=== PATIENT | female | born 1985 | race Caucasian/White ===

== ENCOUNTER 2019-09-13 11:42 | Inpatient (IN) | payer OTHER ==
[~2019-09-13] VITALS: Ht 170.2 cm; Wt 85.2 kg
--- NOTE | ~2019-09-13 | CON ---
[address] [address] CONSULTATION Name: CURRY CUMMINGS Room: [address] ADM IN M.R.#: [id number] Admission: 09/13/19 Attend Phys: Elijah Tompkins Discharge: Date of : 83 Report #: [id number] THIS REPORT FOR: //name// cc: SHANNAN Sparks family physician/PCP SHANNAN - [place] family physician/PCP ~ THIS REPORT FOR: //name// CC: SHANNAN physician/PCP Stan Ceballos DATE OF SERVICE: 09/14/2019 NEW PATIENT CONSULTATIVE SUMMARY PRIMARY CARE PHYSICIAN: Unknown. REASON FOR CONSULTATION: New DVT and PE. HISTORY OF PRESENT ILLNESS: The patient is a very pleasant 34-year-old female who gives a history of having some leg pain on the left side for the last 2-3 days. She developed some chest pain and shortness of breath 48 hours ago and came to the Emergency Room yesterday due to the shortness of breath. The patient was evaluated in the Emergency Room and had a knee x-ray due to pain, which did not show any fracture or deformity. She had a venous Doppler ultrasound performed subsequently, which showed an occlusive DVT within the left popliteal and calf veins, so she had a CT angiogram of the chest, which was done due to her shortness of breath and chest pain, which showed multiple bilateral pulmonary emboli, most prominent in the right lower lung. There were subsegmental areas of atelectasis or pneumonia, most prominent in the left lung base. Small infiltrates are present in the medial and posterior right lung base as well. The patient was started on Lovenox. She had labs performed including CBC and CMP, which did show some mild elevation in bilirubin to 1.5. For this reason, she had a CT scan of the abdomen and pelvis, which shows increasing areas of consolidation in the right lower lung with increasing atelectasis in the posterior left lower lung with vascular congestion improved otherwise from the day prior. No evidence of acute abdominal or pelvic process was seen. No evidence of hepatic mass was seen. There was no evidence of any acute abdominal or pelvic process including left ovary, which was normal and right ovary, which was somewhat displaced. The patient's CBC today showed increasing WBC count from 11.2-16.9. Hemoglobin and hematocrit today was 13.1 and 38.9 respectively, platelet count of 302 and absolute neutrophil count of 16.4 with a lymphocyte count of 0.3. Chemistries revealed normal electrolytes with renal function normal with BUN and creatinine of 7 and 0.7 respectively. AST was mildly elevated at 56 with ALT normal at 41 and alkaline phosphatase normal at 89 with albumin of 3.3. The patient also was started on levofloxacin for community-acquired pneumonia. She is feeling somewhat better, but still having [facility] [address] [facility] [place] [place] [address] CONSULTATION Name: CURRY CUMMINGS Room: [address] IN M.R.#: [id number] Admission: 09/13/19 Attend Phys: Elijah Tompkins Discharge: Date of : 83 Report #: [id number] chest pain in the right lower zone along with some leg pain and discomfort. PAST MEDICAL HISTORY: 1. Migraines. 2. Tobacco use. 3. New onset PE and DVT current admission. PAST SURGICAL HISTORY: 1. Vaginal deliveries x 2. 2. Growth on tailbone. FAMILY HISTORY: The patient's paternal grandmother had a history of blood clots in the legs. The patient's father has had history of coronary artery disease. No other significant family history of blood clotting or bleeding disorders or cancers. PERSONAL HISTORY: The patient is a current every day smoker for the last 14 years, 1 pack of cigarettes per day, uses alcohol only on special occasions. Denies any illicit drug use. ALLERGIES: 1. AMOXICILLIN. 2. ONDANSETRON. 3. POTASSIUM. CURRENT MEDICATIONS: 1. Lovenox 50 mg subcutaneously b.i.d. 2. Oxycodone 5 mg p.o. q.4 hours as needed. 3. Levaquin 750 mg daily IV. 4. Macrobid 100 mg p.o. b.i.d. 5. Nicotine transdermal patches 14 mg daily. 6. Tramadol 50 mg p.o. q.6 hours as needed. 7. Sodium chloride for IV hydration. 8. Promethazine 12.5 mg IV q.4 hours as needed. 9. Fentanyl 25 mcg IV q.2 hours as needed. REVIEW OF SYSTEMS: A 13-point review of systems were obtained, which were negative for any findings of those discussed in the HPI. PHYSICAL EXAMINATION: VITAL SIGNS: Temperature today was 36.6 degrees centigrade, pulse was 92 beats per minute, respiratory rate 17 breaths per minute, blood pressure 123/72 mmHg with pulse ox 93% on room air. GENERAL: Awake, alert, oriented x 3, no apparent distress. HEENT: EOMI/PERRL. LYMPHATIC: No lymphadenopathy in the neck [place] [address] CONSULTATION Name: CURRY CUMMINGS Room: [address] IN Deanna.Yuri.#: [id number] Admission: 09/13/19 Attend Phys: Elijah Tompkins Discharge: Date of : 83 Report #: [id number] CHEST: Clear bilaterally. Crackles in the right lower zone. CARDIOVASCULAR: Regular rate and rhythm. ABDOMEN: Soft, bowel sounds positive. MUSCULOSKELETAL: No significant arthropathy, gait not assessed. NEUROLOGIC: No evidence of any focal neurological deficits. INTEGUMENTARY: No evidence of rash or other skin changes. ASSESSMENT AND PLAN: The patient is a very pleasant 34-year-old female with a history of smoking, [id number] history so far, who presented with left sided deep venous thrombosis and bilateral pulmonary emboli along with right sided lower lobe infiltrate suggestive of pneumonia. She was started on Lovenox for treatment of her deep venous thrombosis. Some hypercoagulability blood tests have been sent and I will complete these testing with prothrombin gene mutation, antithrombin III, protein C and protein S along with lupus anticoagulant testing. The patient is currently on Lovenox, which she is tolerating well. She does have some mild hemoptysis at this time. If her chest pain and cough continues, she may benefit from broad spectrum antibiotics. She does have positive family history of pulmonary embolism and deep venous thrombosis in her grandmother, but otherwise this was an unprovoked thromboembolic event. She will need at least 6 months of anticoagulation with further duration determined by the results of her hypercoagulability workup. The patient is currently without insurance and has applied for Medicaid. digital product manager will work on options for possible coverage of novel anticoagulants versus Coumadin. If she does go home on Coumadin, she will need to check her INR at her primary care physician's office or the [facility]. These factors and issues were discussed with the patient in detail and all of her questions were answered to her satisfaction. We will follow her while she is in-house. Thank you for allowing us to participate in the care of this pleasant patient. By: [id number] Lyons MD /nt
[~2019-09-13 11:42] MED LIST: AZITHROMYCIN 2250 MG PO; DOXYCYCLINE 10100 MG PO; NOHOMEMEDICATIONS
[2019-09-13 11:52] VITALS: BP 141/73
[2019-09-13 12:29] LABS: ABSOLUTE BASOPHILS 0.1 thou/uL (0.0-0.2); ABSOLUTE LYMPHOCYTES 1.1 thou/uL (0.8-5.3); ABSOLUTE MONOCYTES 0.6 thou/uL (0.0-1.2); ABSOLUTE NEUTROPHILS 9.4 thou/uL (1.6-8.1); BASOPHILS 0.6 %; EOSINOPHILS 0.3 %; HEMATOCRIT 40.7 % (37.0-47.0); HEMOGLOBIN 14.1 gm/dL (12.0-15.0); MCH 33.8 pg (26.0-34.0); MCHC 34.7 g/dL (28.0-37.0); MCV 97.4 fL (80.0-100.0); MONOCYTES 5.3 %; MPV 7.1 fl. (7.2-11.1); NUCLEATED RBCS 0 /100WBC; PLATELET COUNT* 268 thou/uL (150-400); POLYS 83.8 %; RBC 4.18 mil/uL (4.20-5.00); RDW-CV 15.9 % (10.5-14.5); WBC 11.2 thou/uL (4.0-11.0)
[2019-09-13 12:46] LABS: CALCIUM 8.7 mg/dL (8.5-10.1); CREATININE 0.7 mg/dL (0.6-1.3); POTASSIUM 3.5 mmol/L (3.5-5.1)
[2019-09-13 12:50] LABS: ALBUMIN 3.3 g/dL (3.4-5.0); TOTAL BILIRUBIN 1.5 mg/dL (<0.1-1.0); TOTAL PROTEIN 7.3 g/dL (6.4-8.2)
[2019-09-13 13:45] LABS: URINE BLOOD TRACE (Negative); URINE CLARITY CLEAR; URINE COLOR ORANGE; URINE GLUCOSE-RANDOM NEGATIVE (Negative); URINE KETONES TRACE (Negative); URINE LEUKOCYTES-REFLEX NEGATIVE (Negative); URINE PROTEIN TRACE (Negative); URINE SPECIFIC GRAVITY 1.025 (1.005-1.030)
[2019-09-13 13:47] LABS: ICTOTEST (BILI CONFIRMATORY) Negative (Negative); URINE BILIRUBIN 2+ (Negative); URINE NITRITE-REFLEX POSITIVE (Negative)
[2019-09-13 13:51] LABS: SQUAMOUS >10 Many /LPF (0-3)
[2019-09-13 13:52] LABS: URINE WBC-REFLEX 0-5 Rare /HPF (0-5)
[2019-09-13 13:53] LABS: CASTS None Seen /LPF (None Seen); CRYSTALS None Seen /LPF (None Seen); MUCUS >6 Heavy strn/LPF (None Seen); URINE RBC 0-2 Rare /HPF (0-2)
[2019-09-13 13:55] LABS: APTT 27.5 Seconds (25.0-31.3); PROTIME 10.2 Seconds (9.20-11.50)
--- NOTE | 2019-09-13 14:32 | EKG ---
[place] [address] ELECTROCARDIOGRAM REPORT Name: CURRY CUMMINGS Room: [place] [address] ADM IN .R.#: [id number] Admission: 09/13/19 Attend Phys: Stan Ceballos Discharge: Date of : 83 Date of Service: 09/13/19 1358 Report #: [id number] THIS REPORT FOR: //name// [facility] ED Test Date: 2019-09-13 Test Time: 13:58:50 Pat Name: CURRY CUMMINGS Department: Room: [facility] Gender: F Economic Consultant: [facility] : 1985 Requested By: Rasta Huitron Order Number: [id number] MD: Junior Jessica Measurements Intervals [place] Rate: 86 P: 61 NH: 173 QRS: 42 QRSD: 85 T: 8 QT: 372 QTc: 445 Interpretive Statements Sinus rhythm Baseline wander in lead(s) V2 No previous ECG available for comparison Electronically Signed On 09-13-2019 14:31:23 BROOM HANDLE DIPPER by Junior Jessica [email or web address] <ELECTRONICALLY SIGNED> By: Junior Jessica MD, [facility] 09/13/19 1431 1358 [id number] Junior Jessica MD, FACC /EPI
[2019-09-13 17:11] VITALS: BP 126/73
[2019-09-13 17:18] VITALS: BP 116/72
[2019-09-13 20:00] VITALS: BP 116/67
[2019-09-14 00:19] VITALS: BP 111/65
[2019-09-14 04:32] VITALS: BP 106/61
[2019-09-14 05:19] LABS: HEMATOCRIT 38.9 % (37.0-47.0); HEMOGLOBIN 13.2 gm/dL (12.0-15.0); MCH 33.4 pg (26.0-34.0); MCHC 33.9 g/dL (28.0-37.0); MCV 98.5 fL (80.0-100.0); MPV 7.3 fl. (7.2-11.1); NUCLEATED RBCS 0 /100WBC; PLATELET COUNT* 302 thou/uL (150-400); RBC 3.95 mil/uL (4.20-5.00); RDW-CV 15.4 % (10.5-14.5); WBC 16.9 thou/uL (4.0-11.0)
[2019-09-14 05:29] LABS: CALCIUM 8.6 mg/dL (8.5-10.1); CREATININE 0.9 mg/dL (0.6-1.3); POTASSIUM 3.5 mmol/L (3.5-5.1)
[2019-09-14 05:48] LABS: ABSOLUTE LYMPHOCYTES 0.3 thou/uL (0.8-5.3); ABSOLUTE MONOCYTES 0.2 thou/uL (0.0-1.2); ABSOLUTE NEUTROPHILS 16.4 thou/uL (1.6-8.1); ANISOCYTOSIS 1+; PLATELET ESTIMATE ADEQUATE; POIKILOCYTOSIS 1+
[2019-09-14 08:00] VITALS: BP 136/79
[2019-09-14 12:58] VITALS: BP 123/72
[2019-09-14 20:00] VITALS: BP 116/76
[2019-09-15] VITALS: BP 135/76
[2019-09-15 03:30] VITALS: BP 111/71
[2019-09-15 05:34] LABS: ABSOLUTE LYMPHOCYTES 1.9 thou/uL (0.8-5.3); ABSOLUTE MONOCYTES 0.5 thou/uL (0.0-1.2); BASOPHILS 0.2 %; EOSINOPHILS 0.1 %; HEMATOCRIT 35.1 % (37.0-47.0); HEMOGLOBIN 11.9 gm/dL (12.0-15.0); MCH 33.8 pg (26.0-34.0); MCHC 33.8 g/dL (28.0-37.0); MCV 99.9 fL (80.0-100.0); MONOCYTES 5.2 %; MPV 7.1 fl. (7.2-11.1); NUCLEATED RBCS 0 /100WBC; PLATELET COUNT* 292 thou/uL (150-400); POLYS 76.5 %; RBC 3.51 mil/uL (4.20-5.00); RDW-CV 15.8 % (10.5-14.5); WBC 10.4 thou/uL (4.0-11.0)
[2019-09-15 06:08] LABS: ALBUMIN 2.4 g/dL (3.4-5.0); CALCIUM 8.1 mg/dL (8.5-10.1); CREATININE 0.8 mg/dL (0.6-1.3); TOTAL BILIRUBIN 0.5 mg/dL (<0.1-1.0); TOTAL PROTEIN 6.1 g/dL (6.4-8.2)
[2019-09-15 08:00] VITALS: BP 112/62
[2019-09-15 12:09] VITALS: BP 97/47
[2019-09-15 16:00] VITALS: BP 111/61
[2019-09-15 20:00] VITALS: BP 130/67
[2019-09-16] VITALS: BP 105/72
[2019-09-16 04:00] VITALS: BP 105/66
[2019-09-16 04:53] LABS: ABSOLUTE EOSINOPHILS 0.1 thou/uL (0.0-0.7); ABSOLUTE LYMPHOCYTES 1.9 thou/uL (0.8-5.3); ABSOLUTE MONOCYTES 0.3 thou/uL (0.0-1.2); ABSOLUTE NEUTROPHILS 3.7 thou/uL (1.6-8.1); BASOPHILS 0.8 %; EOSINOPHILS 1.2 %; HEMATOCRIT 32.5 % (37.0-47.0); HEMOGLOBIN 11.2 gm/dL (12.0-15.0); LYMPHOCYTES 31.4 %; MCH 34.2 pg (26.0-34.0); MCHC 34.4 g/dL (28.0-37.0); MCV 99.4 fL (80.0-100.0); MPV 6.7 fl. (7.2-11.1); NUCLEATED RBCS 0 /100WBC; PLATELET COUNT* 292 thou/uL (150-400); POLYS 61.6 %; RBC 3.27 mil/uL (4.20-5.00); RDW-CV 15.7 % (10.5-14.5); WBC 6.1 thou/uL (4.0-11.0)
[2019-09-16 05:14] LABS: ALBUMIN 2.2 g/dL (3.4-5.0); CALCIUM 8.1 mg/dL (8.5-10.1); CREATININE 0.6 mg/dL (0.6-1.3); POTASSIUM 3.8 mmol/L (3.5-5.1); TOTAL BILIRUBIN 0.5 mg/dL (<0.1-1.0); TOTAL PROTEIN 5.7 g/dL (6.4-8.2)
[2019-09-16 08:30] VITALS: BP 108/63
[2019-09-16 13:46] VITALS: BP 113/88
[2019-09-16 13:48] VITALS: BP 128/83
[2019-09-16 16:06] VITALS: BP 126/73
[2019-09-17] VITALS: BP 126/79
[2019-09-17 07:47] LABS: ABSOLUTE BASOPHILS 0.1 thou/uL (0.0-0.2); ABSOLUTE EOSINOPHILS 0.1 thou/uL (0.0-0.7); ABSOLUTE LYMPHOCYTES 1.3 thou/uL (0.8-5.3); ABSOLUTE MONOCYTES 0.3 thou/uL (0.0-1.2); ABSOLUTE NEUTROPHILS 3.8 thou/uL (1.6-8.1); BASOPHILS 1.1 %; HEMATOCRIT 33.6 % (37.0-47.0); HEMOGLOBIN 11.4 gm/dL (12.0-15.0); LYMPHOCYTES 23.4 %; MCH 33.4 pg (26.0-34.0); MCHC 33.8 g/dL (28.0-37.0); MCV 98.6 fL (80.0-100.0); MPV 6.6 fl. (7.2-11.1); NUCLEATED RBCS 0 /100WBC; PLATELET COUNT* 329 thou/uL (150-400); POLYS 67.5 %; RBC 3.41 mil/uL (4.20-5.00); RDW-CV 15.9 % (10.5-14.5); WBC 5.6 thou/uL (4.0-11.0)
[2019-09-17 07:55] LABS: CALCIUM 8.3 mg/dL (8.5-10.1); CREATININE 0.6 mg/dL (0.6-1.3); POTASSIUM 3.6 mmol/L (3.5-5.1)
[2019-09-17 08:00] VITALS: BP 113/71
[2019-09-17 12:00] VITALS: BP 112/75
--- NOTE | 2019-09-17 15:57 | 2DMMODE ---
[place] [address] 2 D/M-MODE ECHOCARDIOGRAM Name: CURRY CUMMINGS Room: [address] ADM IN M.R.#: [id number] Admission: 09/13/19 Attend Phys: Stan Ceballos Discharge: Date of : 83 Date of Service: 09/17/19 1556 Report #: [id number] THIS REPORT FOR: cc: FAM - No family physician/PCP FAM - No family physician/PCP Usama Powers MD [facility] ~ APPROVED REPORT Study performed: 09/17/2019 11:52:22 EXAM: Comprehensive 2D, Doppler, and color-flow Echocardiogram Patient Location: Bedside BSA: 1.86 HR: 80 bpm BP: 113/71 mmHg Other Information Study Quality: Good Indications Dyspnea Chest Pain 2D Dimensions IVSd: 10.04 (7-11mm) LVOT Diam: 20.38 (18-24mm) LVDd: 42.00 mm PWd: 11.90 (7-11mm) Ascending Ao: 25.89 (22-36mm) LVDs: 35.31 (25-40mm) Aortic Root: 26.46 mm Volumes Left Atrial Volume (Systole) LA ESV Index: 20.40 mL/m2 Aortic Valve AoV Peak Aung.: 0.97 m/s AO Peak Gr.: 3.77 mmHg LVOT Max P.45 mmHg AO Mean Gr.: 2.56 mmHg LVOT Mean P.64 mmHg LVOT Max V: 0.93 m/s AO V2 VTI: 19.12 cm LVOT Mean V: 0.58 m/s KYLE (VTI): 3.82 cm2 LVOT V1 VTI: 22.40 [place] [address] 2 D/M-MODE ECHOCARDIOGRAM Name: CURRY CUMMINGS Room: [address] IN M.R.#: [id number] Admission: 09/13/19 Attend Phys: Stan Ceballos Discharge: Date of : 83 Date of Service: 09/17/19 1556 Report #: [id number] E/A Ratio: 1.76 MV Decel. Time: 182.33 ms MV E Max Aung.: 0.76 m/s MV PHT: 52.88 ms MVA (PHT): 4.16 cm2 TDI E/Lateral E': 5.07 E/Medial E': 5.85 Medial E' Aung.: 0.13 m/s Lateral E' Aung.: 0.15 m/s Pulmonary Valve PV Peak Aung.: 0.79 m/s PV Peak Gr.: 2.51 mmHg Tricuspid Valve RAP Estimate: 5.00 mmHg TR Peak Gr.: 44.86 mmHg RVSP: 49.86 mmHg PA Pressure: 49.86 mmHg Left Ventricle The left ventricle is normal size. There is normal LV segmental wall motion. There is normal left ventricular wall thickness. The left ventricular systolic function is normal. The left ventricular ejection fraction is within the normal range. LVEF is 55-60%. The left ventricular diastolic function is normal. Right Ventricle The right ventricle is normal size. The right ventricular systolic function is normal. Atria The left atrium size is normal. The right atrium size is normal. Aortic Valve The aortic valve is normal in structure. No aortic regurgitation is present. There is no aortic valvular stenosis. Mitral Valve The mitral valve is normal in structure. Trace mitral regurgitation. No evidence of mitral valve stenosis. Tricuspid Valve The tricuspid valve is normal in structure. [place] [address] 2 D/M-MODE ECHOCARDIOGRAM Name: CURRY CUMMINGS Room: [address]#: [id number] Admission: 09/13/19 Attend Phys: Stan Ceballos Discharge: Date of : 83 Date of Service: 09/17/19 1556 Report #: [id number] Pulmonic Valve The pulmonary valve is normal in structure. Trace pulmonic regurgitation. Great Vessels The aortic root is normal in size. IVC is normal in size and collapses >50% with inspiration. Pericardium There is no pericardial effusion. <Conclusion> The left ventricle is normal size. There is normal left ventricular wall thickness. The left ventricular systolic function is normal. The left ventricular ejection fraction is within the normal range. LVEF is 55-60%. The left ventricular diastolic function is normal. The right ventricle is normal size. The left atrium size is normal. The right atrium size is normal. The aortic valve is normal in structure. The mitral valve is normal in structure. The tricuspid valve is normal in structure. IVC is normal in size and collapses >50% with inspiration. There is no pericardial effusion. There is normal LV segmental wall motion. <ELECTRONICALLY SIGNED> By: Usama Powers MD, FACC 09/17/19 1556 1556 1556 Usama Powers MD, FACC /INF
[2019-09-17 16:00] VITALS: BP 122/79
[2019-09-17 21:20] VITALS: BP 147/65
[2019-09-18 00:38] VITALS: BP 118/74
[2019-09-18 04:00] VITALS: BP 129/80
[2019-09-18 07:50] VITALS: BP 125/74
[2019-09-18 11:05] VITALS: BP 152/71
[2019-09-18 17:21] VITALS: BP 152/71
[2019-09-18 17:23] VITALS: BP 123/77
[2019-09-19] VITALS: BP 124/69
[2019-09-19 04:00] VITALS: BP 123/67
[2019-09-19 07:21] LABS: HEMATOCRIT 33.6 % (37.0-47.0); HEMOGLOBIN 11.6 gm/dL (12.0-15.0); MCH 33.6 pg (26.0-34.0); MCHC 34.6 g/dL (28.0-37.0); MCV 97.2 fL (80.0-100.0); MPV 6.6 fl. (7.2-11.1); RBC 3.46 mil/uL (4.20-5.00); RDW-CV 15.5 % (10.5-14.5); WBC 5.9 thou/uL (4.0-11.0)
[2019-09-19 07:35] LABS: PROTIME 10.4 Seconds (9.20-11.50)
[2019-09-19 07:39] LABS: ALBUMIN 2.2 g/dL (3.4-5.0); CREATININE 0.6 mg/dL (0.6-1.3); MAGNESIUM 1.9 mg/dL (1.8-2.4); POTASSIUM 3.5 mmol/L (3.5-5.1); TOTAL BILIRUBIN 0.6 mg/dL (<0.1-1.0); TOTAL PROTEIN 5.6 g/dL (6.4-8.2)
[2019-09-19 08:00] VITALS: BP 130/73
[2019-09-19 12:00] VITALS: BP 119/74
[2019-09-19 16:00] VITALS: BP 124/61
[2019-09-19 19:20] VITALS: BP 135/67
[2019-09-20] VITALS: BP 125/75
[2019-09-20 04:00] VITALS: BP 121/71
[2019-09-20 04:31] LABS: INR 1.2
[2019-09-20 04:38] LABS: ALBUMIN 2.4 g/dL (3.4-5.0); CALCIUM 8.5 mg/dL (8.5-10.1); CREATININE 0.7 mg/dL (0.6-1.3); POTASSIUM 3.7 mmol/L (3.5-5.1); TOTAL BILIRUBIN 0.4 mg/dL (<0.1-1.0)
[2019-09-20 08:00] VITALS: BP 120/67
[2019-09-20 12:23] VITALS: BP 141/80
[2019-09-20 16:10] VITALS: BP 126/71
[2019-09-20 19:40] VITALS: BP 135/69
[2019-09-21] VITALS: BP 118/66
[2019-09-21 04:00] VITALS: BP 106/57
[2019-09-21 04:59] LABS: HEMATOCRIT 34.4 % (37.0-47.0); HEMOGLOBIN 11.8 gm/dL (12.0-15.0); MCH 33.7 pg (26.0-34.0); MCHC 34.3 g/dL (28.0-37.0); MCV 98.2 fL (80.0-100.0); MPV 6.7 fl. (7.2-11.1); RBC 3.5 mil/uL (4.20-5.00); RDW-CV 15.4 % (10.5-14.5); WBC 7.4 thou/uL (4.0-11.0)
[2019-09-21 05:11] LABS: INR 1.2
[2019-09-21 05:22] LABS: ALBUMIN 2.4 g/dL (3.4-5.0); CALCIUM 8.7 mg/dL (8.5-10.1); CREATININE 0.7 mg/dL (0.6-1.3); POTASSIUM 3.4 mmol/L (3.5-5.1); TOTAL BILIRUBIN 0.4 mg/dL (<0.1-1.0); TOTAL PROTEIN 6.2 g/dL (6.4-8.2)
[2019-09-21 08:00] VITALS: BP 100/57
[2019-09-21 13:11] VITALS: BP 126/62
[2019-09-21 16:22] VITALS: BP 123/68
[2019-09-21 20:00] VITALS: BP 121/72
[2019-09-22] VITALS: BP 97/52
[2019-09-22 03:30] VITALS: BP 99/63
[2019-09-22 08:00] VITALS: BP 106/54
[2019-09-22 11:41] LABS: INR 1.2; PROTIME 11.9 Seconds (9.20-11.50)
[2019-09-22 12:49] VITALS: BP 117/69
[2019-09-22 20:00] VITALS: BP 141/59
[2019-09-23] VITALS: BP 107/55
[2019-09-23 08:00] VITALS: BP 95/44
[2019-09-23 08:13] LABS: HEMATOCRIT 35.9 % (37.0-47.0); HEMOGLOBIN 12.3 gm/dL (12.0-15.0); MCH 33.2 pg (26.0-34.0); MCHC 34.2 g/dL (28.0-37.0); MCV 97.2 fL (80.0-100.0); MPV 6.3 fl. (7.2-11.1); RBC 3.69 mil/uL (4.20-5.00); RDW-CV 15.1 % (10.5-14.5); WBC 6.6 thou/uL (4.0-11.0)
[2019-09-23 08:25] LABS: INR 1.1; PROTIME 11.6 Seconds (9.20-11.50)
[2019-09-23 08:30] LABS: ALBUMIN 2.6 g/dL (3.4-5.0); CALCIUM 8.8 mg/dL (8.5-10.1); CREATININE 0.6 mg/dL (0.6-1.3); POTASSIUM 4.1 mmol/L (3.5-5.1); TOTAL BILIRUBIN 0.3 mg/dL (<0.1-1.0); TOTAL PROTEIN 6.3 g/dL (6.4-8.2)
[2019-09-23 15:58] VITALS: BP 112/68
[2019-09-23 20:00] VITALS: BP 124/74
[2019-09-24 00:41] VITALS: BP 124/78
[2019-09-24 04:09] LABS: INR 1.2; PROTIME 12.6 Seconds (9.20-11.50)
[2019-09-24 07:50] VITALS: BP 92/51
[2019-09-24 16:00] VITALS: BP 116/74
[2019-09-24 20:07] VITALS: BP 122/65
[2019-09-24 22:00] VITALS: BP 117/66
[2019-09-25 05:42] LABS: HEMATOCRIT 37.8 % (37.0-47.0); HEMOGLOBIN 12.8 gm/dL (12.0-15.0); MCH 33.1 pg (26.0-34.0); MCV 97.4 fL (80.0-100.0); MPV 6.4 fl. (7.2-11.1); RBC 3.88 mil/uL (4.20-5.00); WBC 6.4 thou/uL (4.0-11.0)
[2019-09-25 06:08] LABS: INR 1.5; PROTIME 14.7 Seconds (9.20-11.50)
[2019-09-25 06:26] LABS: ALBUMIN 2.9 g/dL (3.4-5.0); CALCIUM 9.5 mg/dL (8.5-10.1); CREATININE 0.7 mg/dL (0.6-1.3); MAGNESIUM 2.1 mg/dL (1.8-2.4); POTASSIUM 3.9 mmol/L (3.5-5.1); TOTAL BILIRUBIN 0.2 mg/dL (<0.1-1.0)
[2019-09-25 07:40] VITALS: BP 103/52
[2019-09-25 16:00] VITALS: BP 144/48
[2019-09-25 20:20] VITALS: BP 119/65
[2019-09-26 06:38] LABS: INR 1.7; PROTIME 17.2 Seconds (9.20-11.50)
[2019-09-26 10:29] VITALS: BP 101/58
[2019-09-26 16:31] VITALS: BP 112/70
[2019-09-26 21:00] VITALS: BP 117/77
[2019-09-27 05:34] LABS: INR 1.9; PROTIME 19.1 Seconds (9.20-11.50)
[2019-09-27 09:00] VITALS: BP 113/68
[2019-09-27 15:53] VITALS: BP 118/67
[2019-09-27 21:45] VITALS: BP 122/78
[2019-09-28 05:31] LABS: INR 2.1; PROTIME 21.2 Seconds (9.20-11.50)
[2019-09-28] MEDS ORDERED: COUMADIN 5 MG TA5 M1 PO (08:08)
[2019-09-28] MEDS ORDERED: PERCOCET 5-3251 EACH PO (08:08)
[2019-09-28 11:11] VITALS: BP 152/71
== END 2019-09-28 12:32 | disposition home or self-care (01) | DRG 299 ==
LOC: M.ERS 11:42 → M.TBA-ER 14:13 → M.2W 14:13 → M.ORTHSURG 09-24 16:19
PROVIDERS: Emergency Medicine; Internal Medicine; Physician Assistant; ADMIT Internal Medicine
DX: I82.432 Acute embolism and thrombosis of left popliteal vein (principal); I26.99 Other pulmonary embolism without acute cor pulmonale; J18.9 Pneumonia, unspecified organism; E43 Unspecified severe protein-calorie malnutrition; R04.2 Hemoptysis; N39.0 Urinary tract infection, site not specified; D68.61 Antiphospholipid syndrome; J98.11 Atelectasis; G43.909 Migraine, unspecified, not intractable, without status migrainosus; F17.210 Nicotine dependence, cigarettes, uncomplicated; I27.20 Pulmonary hypertension, unspecified; F32.9 Major depressive disorder, single episode, unspecified; K58.9 Irritable bowel syndrome, unspecified; B96.89 Other specified bacterial agents as the cause of diseases classified elsewhere; S86.912A Strain of unspecified muscle(s) and tendon(s) at lower leg level, left leg, initial encounter; X58.XXXA Exposure to other specified factors, initial encounter; I82.4Z2 Acute embolism and thrombosis of unspecified deep veins of left distal lower extremity; Z86.718 Personal history of other venous thrombosis and embolism; Z86.711 Personal history of pulmonary embolism; Z82.49 Family history of ischemic heart disease and other diseases of the circulatory system; Z79.899 Other long term (current) drug therapy; Z68.29 Body mass index [BMI] 29.0-29.9, adult; Z88.8 Allergy status to other drugs, medicaments and biological substances; Z88.1 Allergy status to other antibiotic agents; Q05.9 Spina bifida, unspecified; Z88.0 Allergy status to penicillin; Z82.3 Family history of stroke; Z83.3 Family history of diabetes mellitus; Y93.89 Activity, other specified; Y92.89 Other specified places as the place of occurrence of the external cause; Y99.8 Other external cause status